=== PATIENT | female | born 1990 | race Caucasian/White ===

== ENCOUNTER 2023-02-26 14:32 | Emergency (ER) | payer BC, SELFPAY ==
[2023-02-26] VITALS (21 sets, daily range): BP systolic 103–136; BP diastolic 64–85; PULSE 77–118; RESP 14–34; TEMP 36.8; O2SAT 98–100
--- NOTE | 2023-02-26 14:30 | RT.EKG_ITS ---
APPROVED REPORT Exam: Resting ECG Reason for Exam: chest discomfort Patient Location: E HR:85 bpm ECG Measurements Heart Rate 85 AXIS IA 198 P 72 QRSd 85 QRS 17 QT 355 T 28 QTc 422 Conclusion Sinus rhythm...normal P axis, V-rate 60- 99
--- NOTE | 2023-02-26 14:40 | ED.GENADUL_ITS ---
Discharge Plan Disposition Condition: Stable Discharge Details Chief Complaint: Chest Pain Clinical Impression: Chest pain Primary Care Provider: Deborah,Local ED Provider: Manny Louis Home Meds and New Rx's Prescriptions: No Action nicotine 14 mg/24 hr Patch 24 Hour 1 patch transdermal DIRECTED norgestimate-ethinyl estradiol [Althea] 0.25-35 mg-mcg tablet 1 tab PO DAILY Patient Comments: TAKE 1 TABLET BY MOUTH EVERY DAY buprenorphine-naloxone 4-1 mg film 1 film sublingual DAILY Medical Decision Making 32 yo female who denies chronic medical problems, is on buprenorphine, who comes in with 3 days of intermittent chest burning and tingling in her hands, worsening today. She denies burning sensation today and states it's more of an ache in the chest. She denies fevers, chills, cough, dyspnea, leg swelling, abdominal pain, n/v. No diaphoresis or n/v, pain doesn't radiate. She quit smoking 3 days ago, she denies other drug use. She is anxios on exam but stable, caox4 speaking clearly. She does have a HR of 106 on my exam in sinus. She has clear lungs, no jvd, no murmurs, no leg swelling or calf tenderness. I suspect her pain is related to anxiety vs gerd, will check troponins, cbc, cmp, and given her heart rate is 106 and is on control check d dimer. She has no tearing back pain and normal peripheral pulses so doubt dissection pt signed out to oncoming provider pending labs and reassessment Differential Diagnosis Differential Diagnosis: anxiety, pe, nstemi, chest wall pain, pleurisy, gerd Lab Data Lab results reviewed: Yes I reviewed the patient's lab results. ECG Data Attestation: I personally reviewed and interpreted this ECG (s) as follows: Prior ECG tracings: not available for review Interpretation: sinus rhythm, rate of 85, pr 198, no acute ischemic findings HPI General Mode of arrival: ambulatory . Date/Time Provider Initiated Documentation: 02/26/23 14:34 . Limitations to Documentation: no limitations . Information obtained by: patient . History of Present Illness 32 year old F presents to the emergency department with the chief complaint of chest pain, described as moderate, Quality is described as burning and aching, and is localized to the chest. Patient reports no radiation. Patient started experiencing this day(s) (3) and it has been constant. No relieving factors improve symptom(s), No exacerbating factors reported . Patient notes denies diaphoresis and fever/chills. Patient did receive the following treatments prior to arrival, none Related Data Home Medications Medication Instructions Recorded Confirmed buprenorphine 4 mg-naloxone 1 mg 1 film sublingual DAILY 02/26/23 02/26/23 sublingual film nicotine 14 mg/24 hr daily 1 patch transdermal DIRECTED 02/26/23 02/26/23 transdermal patch norgestimate 0.25 mg-ethinyl 1 tab PO DAILY 02/26/23 02/26/23 estradiol 35 mcg tablet (Althea) Allergies Allergy/AdvReac Type Severity Reaction Status Date / Time No Known Allergies Allergy Unverified 02/26/23 14:41 General Stated Complaint: Chest Pain PEMA: 3 Review of Systems All systems reviewed & are unremarkable except as noted in HPI and below Constitutional Constitutional: Denies chills, Denies fever(s) and Denies weakness Cardiovascular Cardiovascular: Reports chest pain Respiratory Respiratory: Denies cough Gastrointestinal Gastrointestinal: Denies abdominal pain, Denies nausea and Denies vomiting Musculoskeletal Musculoskeletal: Denies joint swelling Neurologic Neurologic: Denies weakness PFSH All Active Problems (Updated 02/26/23 @ 14:54 by Manny Louis MD) Chest pain (Acute) Social History Smoking/Tobacco Use Status: Former Tobacco Use Smoking risk assessment performed?: Yes Alcohol Intake: never Drug use: Never Substance use type: does not use Exam Const General: no acute distress Orientation: alert HENMT Head: normal to inspection Ears: external ears normal General nose exam: external nose normal Mouth: moist mucous membranes Eyes General: appearance normal, both eyes and all related structures Neck Neck: normal visual inspection Resp Effort & Inspection: normal respiratory effort and able to speak in complete sentences Auscultation: clear to auscultation bilaterally Cardio Jugular venous pressure: no JVD Rate: regular rate Heart Sounds: no murmurs Skin General skin exam: no rashes or lesions noted Neuro General: patient alert and patient oriented x3 Extrem General: normal to inspection Psych Mental Status: mental status grossly normal Course Vital Signs Vital signs: Vital Signs Temperature 36.8 C 02/26/23 14:35 Pulse 88 02/26/23 14:35 Respiratory Rate 18 02/26/23 14:35 Blood Pressure 136/84 02/26/23 14:35 Pulse Oximetry 100 02/26/23 14:35 Temperature 36.8 C 02/26/23 14:35 Temperature Source Skin 02/26/23 14:35 Pulse 88 02/26/23 14:35 Respiratory Rate 18 02/26/23 14:35 Blood Pressure 136/84 02/26/23 14:35 Pulse Oximetry 100 02/26/23 14:35 Oxygen Delivery Method Room Air 02/26/23 14:35 Oxygen Flow Rate 0 02/26/23 14:35 Pain Level 3 02/26/23 14:35
--- NOTE | 2023-02-26 14:45 | DI.RAD_ITS ---
Exam(s) XR PORTABLE CHEST AP EXAM: XR PORTABLE CHEST AP CLINICAL HISTORY: chest pain TECHNIQUE: 2D digital imaging was performed of the chest. One image was obtained. An AP view was ob tained. COMPARISON: No exams were available for comparison FINDINGS: MEDIASTINUM: Normal. HEART: Normal. PULMONARY VASCULATURE: Normal. LUNGS: Clear. PLEURAL SPACE: No pleural effusion or pneumothorax. BONE:Within normal limits for the patient's age. OTHER FINDINGS:Normal. IMPRESSION: No acute pulmonary findings. DATA REPOSITORY: RADIATION DOSE DELIVERED:
[2023-02-26 15:15] LABS: Abs Immature Grans 0.02 10^3/uL (0.0-0.06); Absolute Basophil Count 0.02 10^3/uL (0.0-0.2); Absolute Eosinophil Count 0.03 10^3/uL (0.0-0.7); Absolute Lymphocyte Count 2.37 10^3/uL (1.2-3.4); Absolute Neutrophil Count 4.87 10^3/uL (1.2-6.7); Basophils % 0.3; Eosinophils % 0.4; HCT 40.4 % (36.0-46.0); HGB 13.6 g/dL (11.2-15.7); Immature Grans % 0.3; Lymphocytes % 30.3; MCHC 33.7 % (32.0-36.0); MCV 86 fL (80-95); Monocytes % 6.4; Neutrophils % 62.3; RBC 4.69 10^6/uL (3.93-5.22); RDW 11.9 % (11.7-14.6); RDW-SD 37.2 fL; WBC 7.81 10^3/uL (4.4-10.8)
[2023-02-26 15:27] LABS: ALT 14 U/L (14-59); AST 11 U/L (15-37); Alkaline Phosphatase 44 U/L (46-116); Anion Gap 8.2 mmol/L (3-11); BUN 11 mg/dL (7-18); Bilirubin, Total 0.4 mg/dL (0.2-1.0); CO2 28.8 mmol/L (21.0-32.0); CREATININE 0.8 mg/dL (0.55-1.02); Calcium 8.8 mg/dL (8.5-10.1); Chloride 106 mmol/L (98-107); Estimated GFR 99.71 (mL/min/1.73m2); Glucose 117 mg/dL (74-106); Lipase 42 U/L (16-77); Potassium 3.5 mmol/L (3.5-5.1); Sodium 143 mmol/L (136-145); Total Protein 7.9 g/dL (6.4-8.2)
[2023-02-26 15:30] LABS: Troponin I < 50 ng/L (<or=60)
[2023-02-26 15:32] LABS: HCG Qual (Serum) Negative
[2023-02-26 15:39] LABS: Diff Comment Diff Reviewed; Platelet Count 246 10^3/uL (130-400); RBC Morphology Normal
[2023-02-26 15:42] LABS: D-Dimer 181 ng/mlFEU (<500)
--- NOTE | 2023-02-26 15:42 | ED.PROG_ITS ---
Date of service: 02/26/23 Time of Service: 15:42 Medical Decision Making Care assumed from provider (Dr. Louis) Please see their initial HPI, PE, and documentation. Discussed patient details and case and pending workup and disposition. Patient is hemodynamically stable, and alert and oriented. At the time of signout awaiting labs and D-dimer and further eval. D-dimer within normal limits, initial labs within normal limits, chest x-ray negative for acute coronary pulmonary abnormality. Initial troponin within normal limits. 1608: Patient reevaluation, discussed labs and x-ray results she verbalized understanding. We will give a GI cocktail to see if this alleviates her burning in her chest that she describes it. Plan is to discharge patient home. She verbalized understanding is in agreement with the plan. This text was generated using [employer] dictation system, please disregard any oddities of phrase or misspellings. Serial troponin not indicated due to this going on for approximately 3 days. Imaging Data Radiologic Study: Imaging: X-Ray Radiologist's impression: Views: 1 view. COMPARISON: No relevant prior studies available. FINDINGS: Lungs: No consolidation. No Mass Pleural spaces: No pleural effusion. No pneumothorax. Heart/Mediastinum: Unremarkable Bones/joints: No significant abnormality IMPRESSION: No acute findings. Thank you for allowing us to participate in the care of your patient. Dictated and Authenticated by: Prabhakar Teresa MD 02/26/2023 4:02 PM Eastern Time ([place] & [place]) Sign Out Sign Out Data: Sign Out Comment: chest pain intermittent 3 days, pending labs including d dimer and cxr Last updated by Manny Louis MD at 02/26/23 15:33 Discharge Plan Disposition Patient Disposition: Home Discharge Details Clinical Impression: Chest pain Primary Care Provider: Deborah,Local ED Provider: Denae Bardales Home Meds and New Rx's Prescriptions: Continued nicotine 14 mg/24 hr Patch 24 Hour 1 patch transdermal DIRECTED norgestimate-ethinyl estradiol [Althea] 0.25-35 mg-mcg tablet 1 tab PO DAILY Patient Comments: TAKE 1 TABLET BY MOUTH EVERY DAY buprenorphine-naloxone 4-1 mg film 1 film sublingual DAILY Discharge Instructions Instructions: Chest Pain (ED), GERD (Gastroesophageal Reflux Disease) (ED) Additional Instructions: No evidence for cardiac or lung abnormality at this time. Please consider taking an [id number] antacid such as Pepcid or Prevacid daily in the morning for the next week or 2. Decrease intake of fried spicy fatty foods stay away from alcohol. Follow up with primary care provider in 3-5 days. Return to ED sooner if any worsening or concerns. Increase oral fluids. Discharge Data Discharge Date/Time-TO BE ENTERED AT DEPARTURE: 02/26/23 16:25
--- NOTE | 2023-02-26 16:03 | DI.VRAD_ITS ---
PROCEDURE INFORMATION: Exam: XR Chest Exam date and time: 02/26/2023 3:11 PM Age: 32 years old Clinical indication: Other: Chest pain TECHNIQUE: Imaging protocol: Radiologic exam of the chest. Views: 1 view. COMPARISON: No relevant prior studies available. FINDINGS: Lungs: No consolidation. No Mass Pleural spaces: No pleural effusion. No pneumothorax. Heart/Mediastinum: Unremarkable Bones/joints: No significant abnormality IMPRESSION: No acute findings. Dictated and Authenticated by: Prabhakar Teresa MD. Ordering:OSORIO Bryant MD
== END 2023-02-26 16:25 | disposition home or self-care (01) ==
PROVIDERS: Emergency Medicine; Emergency Provider Registered Nurse Emergency
DX: R07.9 Chest pain, unspecified (principal); R20.2 Paresthesia of skin; F41.9 Anxiety disorder, unspecified
CPT/HCPCS: 36415; 80053; 83690; 93005; 99283; 71045; 83735; 84484; 84703; 85025; 85379; 93010